=== PATIENT | male | born 1960 | race American Indian/Alaskan Native ===

== ENCOUNTER 2018-01-25 06:18 | Observation (INO) | payer MEDICAID ==
--- NOTE | 2018-01-25 06:25 | ED PDOC ---
Arrival/HPI - General Historian: Patient - History of Present Illness Symptom Onset: Gradual Symptom Course: Unchanged Activities at Onset: Light Context: Home - General Chief Complaint: Respiratory Distress Time Seen by Provider: 01/25/18 06:21 - History of Present Illness Narrative History of Present Illness (Text): 01/25/18 06:21 Ja Zuluaga is a 57 year old male, whose past medical history includes asthma , who presents to the Emergency department complaining of shortness of breath. Patient states he woke up this morning with shortness of breath and wheezing, consistent with previous episodes of asthma. Patient notes he cleaned his apartment with bleach yesterday evening, which he states may have triggered his asthma. Patient reports symptoms have improved after receiving nebulizer treatments en route to the hospital but states he is still wheezing.Pt. was administered IV Solumedrol and Mag.Sulfate in addition by medics BOTTLE WASHER.Patient denies any fever, chills, chest pain, nausea, vomiting, diarrhea, urinary symptoms, back pain, neck pain, headache, dizziness, or any other complaints. ( Loc Chavez) Past Medical History - Provider Review Nursing Documentation Reviewed: Yes - Infectious Disease Hx of Infectious Diseases: None Family/Social History - Physician Review Nursing Documentation Reviewed: Yes Family/Social History: Unknown Family HX Allergies/Home Meds Allergies/Adverse Reactions: Allergies FISH Allergy (Verified 01/25/18 06:21) SWELLING Home Medications: Home Meds Medication Instructions Recorded Confirmed No Known Home Med 01/25/18 01/25/18 Review of Systems - Physician Review All systems were reviewed & negative as marked: Yes - Review of Systems Constitutional: Normal. absent: Fevers Eyes: Normal ENT: Normal Respiratory: SOB, Wheezing. absent: Cough Cardiovascular: Normal. absent: Chest Pain Gastrointestinal: Normal. absent: Abdominal Pain, Diarrhea, Nausea, Vomiting Genitourinary Male: Normal. absent: Dysuria, Frequency, Hematuria, Urinary Output Changes Musculoskeletal: Normal. absent: Back Pain, Neck Pain Skin: Normal. absent: Rash Neurological: Normal. absent: Headache, Dizziness Endocrine: Normal Hemo/Lymphatic: Normal Psychiatric: Normal Physical Exam Vital Signs Reviewed: Yes Temperature: Afebrile Blood Pressure: Normal Pulse: Regular Respiratory Rate: Normal Appearance: Positive for: Well-Appearing, Non-Toxic, Comfortable Pain Distress: None Mental Status: Positive for: Alert and Oriented X 3 - Systems Exam Head: Present: Atraumatic, Normocephalic Pupils: Present: PERRL Extroacular Muscles: Present: EOMI Conjunctiva: Present: Normal Mouth: Present: Moist Mucous Membranes Neck: Present: Normal Range of Motion Respiratory/Chest: Present: Clear to Auscultation, Good Air Exchange. No: Respiratory Distress, Accessory Muscle Use Cardiovascular: Present: Regular Rate and Rhythm, Normal S1, S2. No: Murmurs Abdomen: No: Tenderness, Distention, Peritoneal Signs Back: Present: Normal Inspection Upper Extremity: Present: Normal Inspection. No: Cyanosis, Edema Lower Extremity: Present: Normal Inspection. No: Edema Neurological: Present: GCS=15, CN II-XII Intact, Speech Normal Skin: Present: Warm, Dry, Normal Color. No: Rashes Psychiatric: Present: Alert, Oriented x 3, Normal Insight, Normal Concentration Vital Signs Temp Pulse Resp BP Pulse Ox 01/25/18 07:28 116 H 18 143/87 94 L 01/25/18 06:37 20 96 01/25/18 06:34 98.7 F 115 H 18 141/86 98 Medical Decision Making - EKG Interpretation Interpreted by ED Physician: Yes Type: 12 lead EKG ED Course and Treatment: 01/25/18 06:21 Impression: 57 year old male complaining of shortness of breath and wheezing tonighy Plan: -- EKG -- CXR -- Labs, cardiac enzymes, BNP -- Reassess and disposition Progress Notes: Reviewed EKG, sinus tachycardia at 112 bpm[address] Non-specific ST/T wave changes. 01/25/18 07:15 Case endorsed to /pending lab results/CXR/response to treatment/final disposition (Loc Chavez) - Lab Interpretations Lab Results: 01/25/18 06:38 01/25/18 06:38 Lab Results 01/25/18 06:38: PT 10.9, INR 0.95, APTT 32.7 01/25/18 06:38: WBC 20.7 H, RBC 4.37, Hgb 14.4, Hct 42.9, MCV 98.2, MCH 33.0, MCHC 33.6, RDW 14.6 H, Plt Count 413, MPV 9.8 01/25/18 06:38: Sodium 142, Potassium 3.5 L, Chloride 101, Carbon Dioxide 25, Anion Gap 19, BUN 10, Creatinine 0.9, Est GFR ( Amer) > 60, Est GFR (Non- Af Amer) > 60, Random Glucose 159 H, Calcium 9.7, Total Bilirubin 0.4, AST 41, ALT 35, Alkaline Phosphatase 88, Lactate Dehydrogenase 570, Total Creatine Kinase 329 H, CK-MB (CK-2) 3.9 H, CK-MB (CK-2) % Cancelled, Troponin I < 0.01, NT-Pro-B Natriuret Pep 81.2, Total Protein 8.7 H, Albumin 5.1 H, Globulin 3.6, Albumin/Globulin Ratio 1.4 - RAD Interpretation Radiology Orders: 01/25/18 06:31 CHEST PORTABLE [RAD] Stat - Medication Orders Current Medication Orders: Discontinued Medications Albuterol/Ipratropium (Duoneb 3 Mg/0.5 Mg (3 Ml) Ud) 3 ml IH ONCE STA Stop: 01/25/18 06:46 Last Admin: 01/25/18 06:45 Dose: 3 ml Albuterol/Ipratropium (Duoneb 3 Mg/0.5 Mg (3 Ml) Ud) 3 ml IH ONCE STA Stop: 01/25/18 07:22 - Scribe Statement The provider has reviewed the documentation as recorded by the Scribe - Scribe Statement Cookie Hackett All medical record entries made by the Scribe were at my direction and personally dictated by me. I have reviewed the chart and agree that the record accurately reflects my personal performance of the history, physical exam, medical decision making, and the department course for this patient. I have also personally directed, reviewed, and agree with the discharge instructions and disposition. (Loc Chavez) Disposition/Present on Arrival - Present on Arrival Any Indicators Present on Arrival: No History of DVT/PE: No History of Uncontrolled Diabetes: No Urinary Catheter: No History of Decub. Ulcer: No History Surgical Site Infection Following: None - Disposition Have Diagnosis and Disposition been Completed?: No Disposition Time: 07:00 - Disposition Diagnosis: Asthma exacerbation Condition: STABLE Forms: [employer] (Belarusian)
[2018-01-25] MEDS ORDERED: Albuterol-Ipratrop 3 mg / 0.5 (3 ml) UD IH STA ×2 (06:45→07:21)
[2018-01-25 06:47] LABS: HEMOGLOBIN 14.4 g/dL (14.0-18.0); MEAN CELL VOLUME 98.2 fl (80.0-105.0); MEAN CORPUSCULAR HGB CONC 33.6 g/dl (31.0-37.0); MEAN PLATELET VOLUME 9.8 fl (7.0-11.0); RBC 4.37 10^6/uL (3.5-6.1); RED CELL DISTRIBUTION WIDTH 14.6 % (11.5-14.5); WHITE BLOOD COUNT 20.7 10^3/ul (4.5-11.0)
[2018-01-25 06:58] LABS: ALB/GLOB RATIO 1.4 (1.1-1.8); ALBUMIN 5.1 g/dL (3.0-4.8); BLOOD UREA NITROGEN 10 mg/dL (7-21); CALCIUM 9.7 mg/dL (8.4-10.5); GFR AFRICAN-AMERICAN > 60; GFR NON-AFRICAN AMERICAN > 60
[2018-01-25 06:59] LABS: ALT/SGPT 35 U/L (7-56); AST/SGOT 41 U/L (17-59)
[2018-01-25 07:04] LABS: INR 0.95 (0.93-1.08); PARTIAL THROMBOPLASTIN TIME 32.7 Seconds (25.1-36.5); PROTHROMBIN TIME 10.9 SECONDS (9.4-12.5)
[2018-01-25 07:09] LABS: B-TYPE NATRIURETIC PEPTIDE 81.2 pg/mL (0-450); TROPONIN I < 0.01 ng/mL
[2018-01-25 07:21] LABS: CK-MB 3.9 ng/mL (0.0-3.6)
--- NOTE | 2018-01-25 07:33 | ED PDOC ---
Physical Exam Vital Signs Temp Pulse Resp BP Pulse Ox 01/25/18 08:15 98.1 F 118 H 20 93 L 01/25/18 07:28 116 H 18 143/87 94 L 01/25/18 06:37 20 96 01/25/18 06:34 98.7 F 115 H 18 141/86 98 Medical Decision Making ED Course and Treatment: 01/25/18 07:00 Case signed out to me by Dr. Chavez. Patient is a 57 year old male, whose past medical history includes asthma, who presents to the Emergency department complaining of shortness of breath and wheezing. Currently pending Chest X-ray. 01/25/18 09:01 Patient is improving but still having symptoms. He is speaking in full sentences and no longer appears in respiratory distress. His lungs have good air entry b/l. He still has wheezing and some rhonchi. Patient has an elevated WBC as well. CXR did not show any acute infiltrates but in light of his leukocytosis and symptoms will tx with antibiotics for pneumonia. - Lab Interpretations Lab Results: 01/25/18 06:38 01/25/18 06:38 Lab Results 01/25/18 06:38: PT 10.9, INR 0.95, APTT 32.7 01/25/18 06:38: WBC 20.7 H, RBC 4.37, Hgb 14.4, Hct 42.9, MCV 98.2, MCH 33.0, MCHC 33.6, RDW 14.6 H, Plt Count 413, MPV 9.8 01/25/18 06:38: Sodium 142, Potassium 3.5 L, Chloride 101, Carbon Dioxide 25, Anion Gap 19, BUN 10, Creatinine 0.9, Est GFR ( Amer) > 60, Est GFR (Non- Af Amer) > 60, Random Glucose 159 H, Calcium 9.7, Total Bilirubin 0.4, AST 41, ALT 35, Alkaline Phosphatase 88, Lactate Dehydrogenase 570, Total Creatine Kinase 329 H, CK-MB (CK-2) 3.9 H, CK-MB (CK-2) % Cancelled, Troponin I < 0.01, NT-Pro-B Natriuret Pep 81.2, Total Protein 8.7 H, Albumin 5.1 H, Globulin 3.6, Albumin/Globulin Ratio 1.4 - RAD Interpretation Radiology Orders: 01/25/18 06:31 CHEST PORTABLE [RAD] Stat Steel Roller: Radiologist - Medication Orders Current Medication Orders: Discontinued Medications Albuterol Sulfate (Albuterol 0.083% Inhal Shannon (2.5 Mg/3 Ml) Ud) 2.5 mg IH STAT STA Stop: 01/25/18 08:29 Last Admin: 01/25/18 08:59 Dose: 2.5 mg Albuterol/Ipratropium (Duoneb 3 Mg/0.5 Mg (3 Ml) Ud) 3 ml IH ONCE STA Stop: 01/25/18 06:46 Last Admin: 01/25/18 06:45 Dose: 3 ml Albuterol/Ipratropium (Duoneb 3 Mg/0.5 Mg (3 Ml) Ud) 3 ml IH ONCE STA Stop: 01/25/18 07:22 Last Admin: 01/25/18 07:36 Dose: 3 ml Azithromycin (Zithromax) 500 mg PO STAT STA PRN Reason: Protocol Stop: 01/25/18 07:38 Last Admin: 01/25/18 08:59 Dose: 500 mg Ceftriaxone Sodium (Rocephin 1 Gram Ivpb) 1 gm in 100 mls @ 200 mls/hr IVPB STAT STA PRN Reason: Protocol Stop: 01/25/18 08:06 Last Admin: 01/25/18 08:00 Dose: 200 mls/hr eMAR Start Stop Document 01/25/18 08:00 [email or web address] (Rec: 01/25/18 08:02 [email or web address] [id number]) Intravenous Solution Start Date 01/25/18 Start Time 08:02 End Date 01/25/18 Potassium Chloride (K-Dur 20 Meq Er Tab) 40 meq PO STAT STA Stop: 01/25/18 07:38 Last Admin: 01/25/18 07:59 Dose: 40 meq - Scribe Statement The provider has reviewed the documentation as recorded by the Tyrone Ac Provider Scribe Attestation: All medical record entries made by the Scribvivi were at my direction and personally dictated by me. I have reviewed the chart and agree that the record accurately reflects my personal performance of the history, physical exam, medical decision making, and the department course for this patient. I have also personally directed, reviewed, and agree with the discharge instructions and disposition. Disposition/Present on Arrival - Present on Arrival Any Indicators Present on Arrival: No History of DVT/PE: No History of Uncontrolled Diabetes: No Urinary Catheter: No History of Decub. Ulcer: No History Surgical Site Infection Following: None - Disposition Have Diagnosis and Disposition been Completed?: Yes Diagnosis: Asthma exacerbation Disposition: HOSPITALIZED Disposition Time: 08:00 Patient Plan: Admission Patient Problems: Current Active Problems Problem Status Onset Asthma exacerbation Acute Condition: GUARDED
[2018-01-25] MEDS ORDERED: Potassium Chloride 20 mEq ER Tab PO STA (07:37)
[2018-01-25] MEDS ORDERED: cefTRIAXone 1 gm 1 GM/100 ML BAG IVPB STA (07:37)
[2018-01-25] MEDS ORDERED: Albuterol 0.083% Inhal Sol (2.5 mg/3 mL) UD IH STA (08:28)
[2018-01-25] MEDS ORDERED: Albuterol-Ipratrop 3 mg / 0.5 (3 ml) UD IH PRN (09:00)
--- NOTE | 2018-01-25 09:38 | RAD ---
HISTORY: sob COMPARISON: No prior. FINDINGS: LUNGS: No active pulmonary disease. PLEURA: No significant pleural effusion identified, no pneumothorax apparent. CARDIOVASCULAR: Normal. OSSEOUS STRUCTURES: No significant abnormalities. VISUALIZED UPPER ABDOMEN: Normal. OTHER FINDINGS: None. IMPRESSION: No active disease.
[2018-01-25] MEDS ORDERED: guaiFENesin 100 mg/5 ml Syrup UD PO PRN (09:40)
[2018-01-25] MEDS ORDERED: MethylPREDNISolone 40 mg Vial IVP STA (09:40)
[2018-01-25] MEDS: Albuterol-Ipratrop 3 mg / 0.5 (3 ml) UD IH SCH ×2 (13:23→20:01)
[2018-01-25 15:22] VITALS: RESP 20; BMI 25.8
[2018-01-25] MEDS ORDERED: Pneumococcal 23-Valent Vaccine IM ONE (15:22)
--- NOTE | 2018-01-25 16:29 | CP.PCM.HP ---
<Teodoro Singh - Last Filed: 01/25/18 20:29> History of Present Illness - History of Present Illness History of Present Illness: IM H&P for Hospitalist Service CC: Shortness of breath HPI: This is a 57 yo AA M with PMH of Asthma (currently managed only on rescue inhaler) who presents with acute onset shortness of breath and wheezing that he awoke with this AM. He reports cleaning out a subterranean apartment yesterday evening, including cleaning the floors with bleach, and did not air out the apartment after using bleach prior to sleeping in the apartment. He believes the fumes triggered his asthma. Was not able to use his rescue inhaler for relief because it ran out 1 week ago and he hasn't gotten a replacement yet. Called EMS, who brought him to [facility]. Due to dyspnea and wheezing in the ambulance, EMS gave him Solumedrol 125mg x1 and Mag Sulfate x1 prior to arrival ; he got albuterol x1 and duonebs x2 additionally after arrival to the ED. As per ED, no longer conversationally dyspnic after receiving these treatments, but still overtly wheezing, so he was admitted. Patient denies other fumes or organic dust exposures, reports only usually needing to use his rescue inhaler 1 -3 times per month, and denies any other regular medication use. Reports only asthma triggers as pollen and cold air. Finishing last breathing treatment at time of exam in ED, speaking full sentences without dyspnea, not altered or unusual voice appreciated, no accessory muscle use or abdominal breathing appreciated. Denies chest pain, sensation of choking or gasping for air ( currently), nausea, emesis, diarrhea, focal or global weakness, paresthesia, or syncope/near-syncope. All other ROS in 12-system review negative. 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; denies tobacco/alcohol/illicits/IVDA Fam Hx: Asthma (both parents and 2 siblings), DM (brother), HTN (brother and father), SC (father, from it) PMD: Physician in [place] Present on Admission - Present on Admission Any Indicators Present on Admission: No History of DVT/PE: No History of Uncontrolled Diabetes: No Urinary Catheter: No Review of Systems - Review of Systems All systems: reviewed and no additional remarkable complaints except (as per HPI ) Past Patient History - Infectious Disease Hx of Infectious Diseases: None - Past Social History Smoking Status: Former Smoker - CARDIAC Hx Cardiac Disorders: No - PULMONARY Hx Respiratory Disorders: Yes (SMOKES 1/2 PPD CIGARETTES /DAY) Hx Asthma: Yes - NEUROLOGICAL Hx Neurological Disorder: No - HEENT Hx HEENT Problems: No - RENAL Hx Chronic Kidney Disease: No - ENDOCRINE/METABOLIC Hx Endocrine Disorders: No - HEMATOLOGICAL/ONCOLOGICAL Hx Blood Disorders: No - INTEGUMENTARY Hx Dermatological Problems: No - MUSCULOSKELETAL/RHEUMATOLOGICAL Hx Musculoskeletal Disorders: No Hx Falls: No - GASTROINTESTINAL Hx Gastrointestinal Disorders: No - GENITOURINARY/GYNECOLOGICAL Hx Genitourinary Disorders: No - PSYCHIATRIC Hx Psychophysiologic Disorder: No Hx Substance Use: No - SURGICAL HISTORY Hx Surgeries: No - ANESTHESIA Hx Anesthesia: No Meds Home Medications: Home Medication List Medication Instructions Recorded Confirmed Type Albuterol Sulfate [Ventolin Hfa] 1 puff IH Q4H PRN #1 inhaler 01/26/18 Rx Albuterol/Ipratropium [Duoneb 3 3 ml IH Q6H PRN #50 neb 01/26/18 Rx mg/0.5 mg (3 ml) UD] Azithromycin [Zithromax] 500 mg PO DAILY #4 tab 01/26/18 Rx Fluticasone/Salmeterol 250/50 1 puff IH Q12 #1 inhaler 01/26/18 Rx [Advair Diskus] Loratadine [Claritin] 10 mg PO DAILY PRN #14 tab 01/26/18 Rx Methylprednisolone [Medrol Dose See Taper PO DAILY #1 packet 01/26/18 Rx Pack (21 tabs)] Allergies/Adverse Reactions: Allergies Allergy/AdvReac Type Severity Reaction Status Date / Time FISH Allergy SWELLING Verified 01/25/18 12:26 Physical Exam - Constitutional Appears: Non-toxic, No Acute Distress - Head Exam Head Exam: ATRAUMATIC, NORMAL INSPECTION, NORMOCEPHALIC - Eye Exam Eye Exam: EOMI, Normal appearance. absent: Conjunctival injection, Scleral icterus Pupil Exam: absent: Irregular, Unequal - ENT Exam ENT Exam: Mucous Membranes Moist Additional comments: wearing venti-mask for breathing tx at time of exam, speaking through mask without difficulty - Neck Exam Neck exam: Positive for: Full Rom, Normal Inspection. Negative for: Lymphadenopathy - Respiratory Exam Respiratory Exam: Decreased Breath Sounds (mildly decreased breath sounds in all santana), Wheezes (expiratory wheezes appreciated in all santana but more prominent at bases, faint audible wheezing from mouth with normal breathing), NORMAL BREATHING PATTERN. absent: Accessory Muscle Use, Chest Wall Tenderness, Clear to Auscultation Bilateral, Prolonged Expiratory Phase, Rales, Rhonchi, Respiratory Distress, Stridor Additional comments: not dyspnic with speech, able to speak several full sentences without issue - Cardiovascular Exam Cardiovascular Exam: Tachycardia (110's-120's on bedside monitor), REGULAR RHYTHM, +S1, +S2. absent: Bradycardia, Irregular Rhythm, JVD, RRR, +S4 - GI/Abdominal Exam GI & Abdominal Exam: Normal Bowel Sounds, Soft. absent: Diminished Bowel Sounds , Distended, Firm, Hyperactive Bowel Sounds, Hypoactive Bowel Sounds, Rigid, Tenderness - Extremities Exam Extremities exam: Positive for: normal capillary refill, normal inspection, pedal pulses present. Negative for: calf tenderness, joint swelling, pedal edema, tenderness - Neurological Exam Additional comments: awake and alert, following all commands, moving all extremities spontaneously and on command motor grossly intact and equal - Psychiatric Exam Psychiatric exam: Normal Affect, Normal Mood - Skin Skin Exam: Dry, Intact, Normal Color, Warm Results - Vital Signs Recent Vital Signs: Last Vital Signs Temp 98.7 F 01/25/18 14:56 Pulse 112 H 01/25/18 14:56 Resp 20 01/25/18 14:56 BP 143/87 01/25/18 14:56 Pulse Ox 96 01/25/18 14:00 - Labs Result Diagrams: 01/25/18 06:38 01/25/18 06:38 Labs: Laboratory Results - last 24 hr 01/25/18 09:05 Influenza Typ A,B (EIA) Negative for flu a/b Assessment & Plan - Assessment and Plan (Free Text) Assessment: This is a 57 yo AA M with PMH of Asthma (currently managed only on rescue inhaler) who presents with acute onset shortness of breath and wheezing that he awoke with this AM. He was admitted for likely asthma exacerbation. Plan: 1) Shortness of breath with wheezing -Asthma exacerbation vs PNA vs PE -CXR on admission clear, and patient denies productive cough or recent sick contacts; repeat CXR in AM to reassess -Denies personal or family hx of blood clots, not desaturating, no LE edema/ erythema/tenderness, and Well's score for PE 1.5, so low likelihood of PE -environmental exposure due to cleaning with bleach and sleeping in apartment without fumigating first; likely exacerbated by lack of rescue inhaler -Duonebs q6 trevin and q4 prn -got solumedrol 125mg IVP x1 in ambulance, started on IV solumedrol taper, 40mg IVP today AM, 30mg IVP PM today, 20mg IVP tomorrow AM, and will d/c on Medrol dose pack -less likely PNA as afebrile, no sick contacts, and clear CXR, leukocytosis of 20 more likely 2/2 IV steroids in ambulance + acute distress from dyspnea on initial presentation; will not add additional abx at this time (got rocephin and zithromax x1 in ED) pending procal, if negative can d/c w/o abx -will give scripts on d/c for new rescue inhaler (uses Ventolin) and Medrol dose pack 2) Tachycardia -sinus tachy on exam and bedside monitor, likely 2/2 dyspnea/asthma exacerbation -denies any other cardiac hx, not on any cardiac meds at home -otherwise hemodynamically stable, monitor for now and if persists despite treatment or if abnormal rhythm develops, will consider cardiac meds at that time Dispo: Med/Surg obs, on IV steroid taper and scheduled/prn duonebs for acute asthma exacerbation FEN: Regular diet Access: Peripheral IV Consults: N/a Ppx: Pepcid for GI, SCDs for DVT Patient seen, reviewed, and discussed with attending, Dr. Marie. Decision To Admit - Pt Status Changed To: Hospital Disposition Of: Observation - . Bed Request Type: Med/Surg <Elyse Marie - Last Filed: 01/26/18 15:21> Results - Vital Signs Recent Vital Signs: Last Vital Signs Temp 98 F 01/26/18 07:00 Pulse 96 H 01/26/18 07:00 Resp 20 01/26/18 07:00 BP 121/82 01/26/18 07:00 Pulse Ox 100 01/26/18 07:00 - Labs Result Diagrams: 01/26/18 06:15 01/26/18 06:15 Labs: Laboratory Results - last 24 hr 01/26/18 01/26/18 06:15 06:15 WBC 21.5 H RBC 4.14 Hgb 13.5 L Hct 39.8 L MCV 96.1 MCH 32.6 MCHC 33.9 RDW 14.8 H Plt Count 412 MPV 9.6 Gran % 92.7 H Lymph % (Auto) 3.8 L Barton % (Auto) 3.5 Eos % (Auto) 0.0 L Baso % (Auto) 0.0 Gran # 19.89 H Lymph # (Auto) 0.8 L Barton # (Auto) 0.8 H Eos # (Auto) 0.0 Baso # (Auto) 0.01 Neutrophils % (Manual) 92 H Lymphocytes % (Manual) 8 L Monocytes % (Manual) TEST NOT PERFORMED Platelet Evaluation Normal Sodium 140 Potassium 4.7 Chloride 104 Carbon Dioxide 24 Anion Gap 16 BUN 14 Creatinine 0.8 Est GFR ( Amer) > 60 Est GFR (Non-Af Amer) > 60 Random Glucose 137 H Calcium 9.8 Phosphorus 3.8 Magnesium 2.5 H Total Bilirubin 0.4 AST 35 ALT 29 Alkaline Phosphatase 72 Total Protein 7.7 Albumin 4.4 Globulin 3.3 Albumin/Globulin Ratio 1.3 Attending/Attestation - Attestation I have personally seen and examined this patient.: Yes I have fully participated in the care of the patient.: Yes I have reviewed all pertinent clinical information: Yes Notes (Text): 01/26/18 15:17 attending note; Patient seen and examined With resident. Patient is a 57-year-old male with PMH of Asthma (currently managed only on rescue inhaler) who presents with acute onset shortness of breath and wheezing. acute asthma exacerbation after exposed to cleaning solution. continue oxygen, IV Solu-Medrol. Leukocytosis; secondary to allergic reaction. Monitor closely. Patient is afebrile and nontoxic. Got IV Rocephin andZithromax. Upon discharge the patient will follow up with PMD in [place].
[2018-01-25] MEDS ORDERED: MethylPREDNISolone 40 mg Vial IVP ONE (22:00)
--- NOTE | 2018-01-25 22:44 | CARD ---
APPROVED REPORT EKG Measurement Heart [id number] <Conclusion> Sinus tachycardia Minimal voltage criteria for LVH, may be normal variant Borderline ECG
[2018-01-26] MEDS: Albuterol-Ipratrop 3 mg / 0.5 (3 ml) UD IH SCH ×3 (03:01→13:08)
[2018-01-26 06:52] LABS: BASO # 0.01 K/mm3 (0.0-2.0); GRAN # 19.89 (1.4-6.5); GRAN % 92.7 % (50.0-68.0); HEMOGLOBIN 13.5 g/dL (14.0-18.0); LYMPH # 0.8 (1.2-3.4); LYMPH % 3.8 % (22.0-35.0); MEAN CELL VOLUME 96.1 fl (80.0-105.0); MEAN CORPUSCULAR HEMOGLOBIN 32.6 pg (25.0-35.0); MEAN CORPUSCULAR HGB CONC 33.9 g/dl (31.0-37.0); MEAN PLATELET VOLUME 9.6 fl (7.0-11.0); MONO # 0.8 (0.1-0.6); MONO % 3.5 % (1.0-6.0); PLATELET COUNT 412 10^3/uL (120.0-450.0); RBC 4.14 10^6/uL (3.5-6.1); RED CELL DISTRIBUTION WIDTH 14.8 % (11.5-14.5); WHITE BLOOD COUNT 21.5 10^3/ul (4.5-11.0)
[2018-01-26 07:41] LABS: ALB/GLOB RATIO 1.3 (1.1-1.8); ALBUMIN 4.4 g/dL (3.0-4.8); ALT/SGPT 29 U/L (7-56); AST/SGOT 35 U/L (17-59); BLOOD UREA NITROGEN 14 mg/dL (7-21); CALCIUM 9.8 mg/dL (8.4-10.5); GFR AFRICAN-AMERICAN > 60; GFR NON-AFRICAN AMERICAN > 60
[2018-01-26 08:24] LABS: LYMPHOCYTE 8 % (22.0-35.0); NEUTROPHIL 92 % (50.0-70.0); PLATELET ESTIMATE NORMAL (NORMAL)
[2018-01-26 08:26] VITALS: BP 121/82; PULSE 96; TEMP 98; O2SAT 100
--- NOTE | 2018-01-26 09:00 | RAD ---
HISTORY: f/u, shortness of breath COMPARISON: 01/25/2018 FINDINGS: LUNGS: There is minimal hazy infiltrate in the right mid lung field. This is a new finding. This could represent an early pneumonia PLEURA: No significant pleural effusion identified, no pneumothorax apparent. CARDIOVASCULAR: Normal. OSSEOUS STRUCTURES: No significant abnormalities. VISUALIZED UPPER ABDOMEN: Normal. OTHER FINDINGS: None. IMPRESSION: There is minimal hazy infiltrate in the right mid lung field. This is a new finding. This could represent an early pneumonia
[2018-01-26] MEDS ORDERED: MethylPREDNISolone 40 mg Vial IVP ONE (10:00)
--- NOTE | 2018-01-26 12:43 | CP.PCM.DIS ---
<Avery Alvarez - Last Filed: 01/26/18 12:33> Provider - Provider Date of Admission: 01/25/18 08:27 Attending physician: Elyse Marie MD Time Spent in preparation of Discharge (in minutes): 45 Diagnosis - Discharge Diagnosis (1) Asthma exacerbation Status: Chronic Priority: Medium Hospital Course - Lab Results Lab Results: Micro Results 01/25/18 09:05 Blood Blood Culture - Preliminary NO GROWTH AFTER 24 HOURS 01/25/18 08:40 Blood Blood Culture - Preliminary NO GROWTH AFTER 24 HOURS Most Recent Lab Values WBC 21.5 10^3/ul (4.5-11.0) H 01/26/18 06:15 RBC 4.14 10^6/uL (3.5-6.1) 01/26/18 06:15 Hgb 13.5 g/dL (14.0-18.0) L 01/26/18 06:15 Hct 39.8 % (42.0-52.0) L 01/26/18 06:15 MCV 96.1 fl (80.0-105.0) 01/26/18 06:15 MCH 32.6 pg (25.0-35.0) 01/26/18 06:15 MCHC 33.9 g/dl (31.0-37.0) 01/26/18 06:15 RDW 14.8 % (11.5-14.5) H 01/26/18 06:15 Plt Count 412 10^3/uL (120.0-450.0) 01/26/18 06:15 MPV 9.6 fl (7.0-11.0) 01/26/18 06:15 Gran % 92.7 % (50.0-68.0) H 01/26/18 06:15 Lymph % (Auto) 3.8 % (22.0-35.0) L 01/26/18 06:15 [place] % (Auto) 3.5 % (1.0-6.0) 01/26/18 06:15 Eos % (Auto) 0.0 % (1.5-5.0) L 01/26/18 06:15 Baso % (Auto) 0.0 % (0.0-3.0) 01/26/18 06:15 Gran # 19.89 (1.4-6.5) H 01/26/18 06:15 Lymph # (Auto) 0.8 (1.2-3.4) L 01/26/18 06:15 [place] # (Auto) 0.8 (0.1-0.6) H 01/26/18 06:15 Eos # (Auto) 0.0 (0.0-0.7) 01/26/18 06:15 Baso # (Auto) 0.01 K/mm3 (0.0-2.0) 01/26/18 06:15 Neutrophils % (Manual) 92 % (50.0-70.0) H 01/26/18 06:15 Lymphocytes % (Manual) 8 % (22.0-35.0) L 01/26/18 06:15 Monocytes % (Manual) TEST NOT PERFORMED 01/26/18 06:15 Platelet Evaluation Normal (NORMAL) 01/26/18 06:15 PT 10.9 SECONDS (9.4-12.5) 01/25/18 06:38 INR 0.95 (0.93-1.08) 01/25/18 06:38 APTT 32.7 Seconds (25.1-36.5) 01/25/18 06:38 Sodium 140 mmol/L (132-148) 01/26/18 06:15 Potassium 4.7 mmol/L (3.6-5.0) 01/26/18 06:15 Chloride 104 mmol/L (98-107) 01/26/18 06:15 Carbon Dioxide 24 mmol/L (21-33) 01/26/18 06:15 Anion Gap 16 (10-20) 01/26/18 06:15 BUN 14 mg/dL (7-21) 01/26/18 06:15 Creatinine 0.8 mg/dl (0.8-1.5) 01/26/18 06:15 Est GFR ( Amer) > 60 01/26/18 06:15 Est GFR (Non-Af Amer) > 60 01/26/18 06:15 Random Glucose 137 mg/dL (70-110) H 01/26/18 06:15 Calcium 9.8 mg/dL (8.4-10.5) 01/26/18 06:15 Phosphorus 3.8 mg/dL (2.5-4.5) 01/26/18 06:15 Magnesium 2.5 mg/dL (1.7-2.2) H 01/26/18 06:15 Total Bilirubin 0.4 mg/dL (0.2-1.3) 01/26/18 06:15 AST 35 U/L (17-59) 01/26/18 06:15 ALT 29 U/L (7-56) 01/26/18 06:15 Alkaline Phosphatase 72 U/L (38-126) 01/26/18 06:15 Lactate Dehydrogenase 570 U/L (333-699) 01/25/18 06:38 Total Creatine Kinase 329 U/L (35-230) H 01/25/18 06:38 CK-MB (CK-2) 3.9 ng/mL (0.0-3.6) H 01/25/18 06:38 CK-MB (CK-2) % Cancelled 01/25/18 06:38 Troponin I < 0.01 ng/mL 01/25/18 06:38 NT-Pro-B Natriuret Pep 81.2 pg/mL (0-450) 01/25/18 06:38 Total Protein 7.7 g/dL (5.8-8.3) 01/26/18 06:15 Albumin 4.4 g/dL (3.0-4.8) 01/26/18 06:15 Globulin 3.3 gm/dL 01/26/18 06:15 Albumin/Globulin Ratio 1.3 (1.1-1.8) 01/26/18 06:15 Procalcitonin 0.06 NG/ML (0.19-0.49) L 01/25/18 06:30 Influenza Typ A,B (EIA) Negative for flu a/b (NEGATIVE) 01/25/18 09:05 - Hospital Course Hospital Course: This is a 57 yo AA M with PMH of Asthma (currently managed only on rescue inhaler) who presents with acute onset shortness of breath. With the use of physical examinations, lab work, and imaging the patient was diagnosed with and treated for asthma exacerbation along with the patients chronic medical conditions. During their hospital stay the patient underwent a chest xray which was reviewed, appreciated, and utilized in the management of the patients clinical course. The chest xray showed minimal hazy infiltrate in the right mid lung field. Patient was treated with IV steroids, duonebs, azithromycin amongst other empiric/therapeutic medications. At this time the patient is medically stable for discharge. Patient understands and appreciates discharge plan. Patient instructed to follow up with primary care physicians and referrals within three to five days from discharge. Furthermore, the patient is instructed to take medications as prescribed and to return to emergency room for evaluation of intractable headache, fever, chills, dizziness, chest pain, shortness of breath, abdominal pain, nausea, vomiting, diarrhea, constipation, and urinary symptoms. This is a brief summary of the patients hospital course. Please see patient chart for full details. Discharge Exam - Additional Findings Additional findings: - Constitutional Appears: Non-toxic, No Acute Distress - Head Exam Head Exam: ATRAUMATIC, NORMAL INSPECTION, NORMOCEPHALIC - Eye Exam Eye Exam: EOMI - ENT Exam ENT Exam: Mucous Membranes Moist - Neck Exam Neck exam: Positive for: Full Rom, Normal Inspection - Respiratory Exam Respiratory Exam: expiratory wheezing bilateral lobes - Cardiovascular Exam Cardiovascular Exam: +S1, +S2 - GI/Abdominal Exam GI & Abdominal Exam: Normal Bowel Sounds, Soft - Extremities Exam Extremities exam: Positive for: normal capillary refill, normal inspection, pedal pulses present - Neurological Exam Additional comments: Patient is awake, alert, responds to verbal stimuli, answers questions appropriately, follows commands, and moves extremities past midline - Psychiatric Exam Psychiatric exam: Normal Affect, Normal Mood - Skin Skin Exam: Dry, Intact, Normal Color, Warm Discharge Plan - Discharge Medications Prescriptions: Fluticasone/Salmeterol 250/50 [Advair Diskus] 1 puff IH Q12 #1 inhaler Loratadine [Claritin] 10 mg PO DAILY PRN #14 tab PRN Reason: Allergy Symptoms Albuterol/Ipratropium [Duoneb 3 mg/0.5 mg (3 ml) UD] 3 ml IH Q6H PRN #50 neb PRN Reason: Shortness Of Breath Methylprednisolone [Medrol Dose Pack (21 tabs)] See Taper PO DAILY #1 packet Albuterol Sulfate [Ventolin Hfa] 1 puff IH Q4H PRN #1 inhaler PRN Reason: Shortness Of Breath Azithromycin [Zithromax] 500 mg PO DAILY #4 tab - Follow Up Plan Condition: GUARDED Disposition: HOME/ ROUTINE Patient education suggested?: Yes Instructions: Asthma (GEN) Additional Instructions: Patient Instructions: Take medications as prescribed Follow up with primary care physician within three to five days from discharge Return to the emergency room for evaluation of intractable headache, fever, chills, dizziness, chest pain, shortness of breath, abdominal pain, nausea, vomiting, diarrhea, constipation, and urinary symptoms <Elyse Marie - Last Filed: 01/26/18 15:22> Provider - Provider Date of Admission: 01/25/18 08:27 Attending physician: Elyse Marie MD Hospital Course - Lab Results Lab Results: Micro Results 01/25/18 09:05 Blood Blood Culture - Preliminary NO GROWTH AFTER 24 HOURS 01/25/18 08:40 Blood Blood Culture - Preliminary NO GROWTH AFTER 24 HOURS Most Recent Lab Values WBC 21.5 10^3/ul (4.5-11.0) H 01/26/18 06:15 RBC 4.14 10^6/uL (3.5-6.1) 01/26/18 06:15 Hgb 13.5 g/dL (14.0-18.0) L 01/26/18 06:15 Hct 39.8 % (42.0-52.0) L 01/26/18 06:15 MCV 96.1 fl (80.0-105.0) 01/26/18 06:15 MCH 32.6 pg (25.0-35.0) 01/26/18 06:15 MCHC 33.9 g/dl (31.0-37.0) 01/26/18 06:15 RDW 14.8 % (11.5-14.5) H 01/26/18 06:15 Plt Count 412 10^3/uL (120.0-450.0) 01/26/18 06:15 MPV 9.6 fl (7.0-11.0) 01/26/18 06:15 Gran % 92.7 % (50.0-68.0) H 01/26/18 06:15 Lymph % (Auto) 3.8 % (22.0-35.0) L 01/26/18 06:15 [place] % (Auto) 3.5 % (1.0-6.0) 01/26/18 06:15 Eos % (Auto) 0.0 % (1.5-5.0) L 01/26/18 06:15 Baso % (Auto) 0.0 % (0.0-3.0) 01/26/18 06:15 Gran # 19.89 (1.4-6.5) H 01/26/18 06:15 Lymph # (Auto) 0.8 (1.2-3.4) L 01/26/18 06:15 [place] # (Auto) 0.8 (0.1-0.6) H 01/26/18 06:15 Eos # (Auto) 0.0 (0.0-0.7) 01/26/18 06:15 Baso # (Auto) 0.01 K/mm3 (0.0-2.0) 01/26/18 06:15 Neutrophils % (Manual) 92 % (50.0-70.0) H 01/26/18 06:15 Lymphocytes % (Manual) 8 % (22.0-35.0) L 01/26/18 06:15 Monocytes % (Manual) TEST NOT PERFORMED 01/26/18 06:15 Platelet Evaluation Normal (NORMAL) 01/26/18 06:15 PT 10.9 SECONDS (9.4-12.5) 01/25/18 06:38 INR 0.95 (0.93-1.08) 01/25/18 06:38 APTT 32.7 Seconds (25.1-36.5) 01/25/18 06:38 Sodium 140 mmol/L (132-148) 01/26/18 06:15 Potassium 4.7 mmol/L (3.6-5.0) 01/26/18 06:15 Chloride 104 mmol/L (98-107) 01/26/18 06:15 Carbon Dioxide 24 mmol/L (21-33) 01/26/18 06:15 Anion Gap 16 (10-20) 01/26/18 06:15 BUN 14 mg/dL (7-21) 01/26/18 06:15 Creatinine 0.8 mg/dl (0.8-1.5) 01/26/18 06:15 Est GFR ( Amer) > 60 01/26/18 06:15 Est GFR (Non-Af Amer) > 60 01/26/18 06:15 Random Glucose 137 mg/dL (70-110) H 01/26/18 06:15 Calcium 9.8 mg/dL (8.4-10.5) 01/26/18 06:15 Phosphorus 3.8 mg/dL (2.5-4.5) 01/26/18 06:15 Magnesium 2.5 mg/dL (1.7-2.2) H 01/26/18 06:15 Total Bilirubin 0.4 mg/dL (0.2-1.3) 01/26/18 06:15 AST 35 U/L (17-59) 01/26/18 06:15 ALT 29 U/L (7-56) 01/26/18 06:15 Alkaline Phosphatase 72 U/L (38-126) 01/26/18 06:15 Lactate Dehydrogenase 570 U/L (333-699) 01/25/18 06:38 Total Creatine Kinase 329 U/L (35-230) H 01/25/18 06:38 CK-MB (CK-2) 3.9 ng/mL (0.0-3.6) H 01/25/18 06:38 CK-MB (CK-2) % Cancelled 01/25/18 06:38 Troponin I < 0.01 ng/mL 01/25/18 06:38 NT-Pro-B Natriuret Pep 81.2 pg/mL (0-450) 01/25/18 06:38 Total Protein 7.7 g/dL (5.8-8.3) 01/26/18 06:15 Albumin 4.4 g/dL (3.0-4.8) 01/26/18 06:15 Globulin 3.3 gm/dL 01/26/18 06:15 Albumin/Globulin Ratio 1.3 (1.1-1.8) 01/26/18 06:15 Procalcitonin 0.06 NG/ML (0.19-0.49) L 01/25/18 06:30 Influenza Typ A,B (EIA) Negative for flu a/b (NEGATIVE) 01/25/18 09:05 Attending/Attestation - Attestation I have personally seen and examined this patient.: Yes I have fully participated in the care of the patient.: Yes I have reviewed all pertinent clinical information, including history, physical exam and plan: Yes Notes (Text): 01/26/18 15:21 attending note; Patient seen and examined With resident. Patient is a 57-year-old male with PMH of Asthma (currently managed only on rescue inhaler) who presents with acute onset shortness of breath and wheezing. acute asthma exacerbation after exposed to cleaning solution. treated with oxygen, IV Solu-Medrol. patient improved significantly. Ambulating without any difficulty. Mild wheezing present. Denies any cough. Tolerating diet. Leukocytosis; secondary to steriods. Pro-calcitonin is negative. X-ray showed haziness in the right middle lung.Patient is afebrile and nontoxic. Got IV Rocephin and Zithromax. will be discharged home with po Zithromax. medications will be delivered to the bedside. Upon discharge the patient will follow up with PMD in [place].
--- NOTE | 2018-01-26 18:52 | CARD ---
APPROVED REPORT EKG Measurement Heart [id number] <Conclusion> Normal sinus rhythm Minimal voltage criteria for LVH, may be normal variant Borderline ECG
== END 2018-01-26 17:28 | disposition home or self-care (01) ==
LOC: ED 06:18 → ERH 08:27 → 5RNO 10:07
PROVIDERS: ADMIT Internal Medicine; ATTEND Internal Medicine
DX: J45.901 Unspecified asthma with (acute) exacerbation (principal)
CPT/HCPCS: 36415; 71045; 80053; 82550; 82553; 83615; 83735; 83880; 84100; 84145; 84484; 85025; 85027; 85610; 85730; 87040; 87804; 93005; 94640; 94760; 96374; 96375; 96376; 99285; G0378; J0696; J2920